=== PATIENT | male | born 1950 | race Caucasian/White ===

== ENCOUNTER 2016-10-17 10:48 | Observation (INO) | payer OTHER, MEDICARE ==
--- NOTE | ~2016-10-17 | HP ---
History And Physical [id number] [place]. [address] NAME: FABRICE BILL : 48 STATUS : ADM Alexander PAT#: [id number] AGE: 66 ADM/REG DATE : 10/17/16 MR#: [id number] REPORT SERV DATE: 10/17/16 DICTATED BY: WALTER FRANKS DATE: 10/17/16 REPORT STATUS : Draft TRANSCRIBED BY: MODL DATE: 10/17/16 DATE OF ADMISSION: 10/17/2016 CHIEF COMPLAINT: Bilateral ureteral calculi. HISTORY OF PRESENT ILLNESS: Mr. Bill is a 66-year-old male with a history of urolithiasis who has had left flank pain with nausea and vomiting for approximately 48 hours. The patient came to the emergency department here where a renal stone CT scan was done. It shows a 1 cm left mid ureteral calculus and a 6 mm right mid ureteral calculus. He states he has been urinating. His serum creatinine was 1.8. He is going to be admitted for treatment of his obstructing stones. PAST MEDICAL HISTORY: Urolithiasis and prostate cancer, which is untreated (self-treated). PAST SURGICAL HISTORY: Includes ureteroscopy. MEDICATIONS: No prescription medications. The patient takes multiple vitamins and herbs including ginseng, vitamin E, and fish oil. ALLERGIES: NONE LISTED. SOCIAL HISTORY: Denies drug, alcohol, or tobacco abuse. He is fairly active for his age. REVIEW OF SYSTEMS: Negative for any gouty arthritis or gastrointestinal diseases. PHYSICAL EXAMINATION: GENERAL: Shows a well-developed, well-nourished white male, in no acute distress. He has been sedated. He is awake and alert. ABDOMEN: Soft and nontender. GENITOURINARY: The bladder is not distended. Flanks are nontender. The penis is normal. Testes descended. Prostate exam not done. LOWER EXTREMITIES: No deformities. STUDIES: CT scan as described. Serum creatinine 1.8. White blood cell count 4000. IMPRESSION: 1. Bilateral obstructing ureteral calculi, left worse than right, left stone is 1 cm and right stone is 6 mm. 2. Acute kidney injury. PLAN: Urgent cystoscopy, bilateral retrograde pyelogram, and bilateral ureteral stenting. Once we reestablished normal renal function and hydrated adequately, we consider either outpatient ureteroscopy or lithotripsy or combination of the two. Addendum: I asked the patient about his prostate cancer. He declined any treatment from me History And Physical [address] [place] [address] NAME: FABRICE BILL : 49 STATUS : ADM Alexander PAT#: [id number] AGE: 66 ADM/REG DATE : 10/17/16 MR#: [id number] REPORT SERV DATE: 10/17/16 DICTATED BY: WALTER FRANKS DATE: 10/17/16 REPORT STATUS : Draft TRANSCRIBED BY: ANDREW DATE: 10/17/16 and wants to continue to get his care with that disease through the [facility]. PF/ANDREW Walter Franks M.D. / [id number] CC: Walter Franks M.D. UNKNOWN
--- NOTE | ~2016-10-17 | OP ---
Record Of Operation [facility] [address] [place]. [address] NAME: FABRICE BILL : 48 STATUS : ADM Alexander PAT#: [id number] AGE: 66 ADM/REG DATE : 10/17/16 MR#: [id number] REPORT SERV DATE: 10/17/16 DICTATED BY: WALTER FRANKS DATE: 10/17/16 REPORT STATUS : Draft TRANSCRIBED BY: MODL DATE: 10/17/16 DATE OF PROCEDURE: 10/17/2016 PREOPERATIVE DIAGNOSES: Bilateral ureteral calculi with obstruction and acute kidney injury. POSTOPERATIVE DIAGNOSES: Bilateral ureteral calculi with obstruction and acute kidney injury. PROCEDURE: Cystoscopy, bilateral retrograde pyelogram, bilateral ureteral stent placement. SURGEON: Walter Franks M.D. ANESTHESIA: General. BLOOD LOSS: 5 mL. FLUID REPLACEMENT: 500 mL crystalloid. DRAINS: A 6-Tajik 28 cm double-J right and left ureteral stents with the strings removed. INDICATIONS: A 66-year-old male with bilateral ureteral calculi. The left calculus is mid ureter, measuring 1 cm. The right calculus is mid ureter, measuring 6 mm. TECHNIQUE: The patient was identified, brought to the operating room, and administered general anesthetic agent by the Anesthesia Service and maintained with a mask airway. He was positioned in the dorsal lithotomy position. Penis, groin, scrotum, and perineum were prepped and draped in the usual sterile fashion. A 22-Tajik cystoscopic sheath with 30- degree lens was used for cystourethroscopy. The anterior and bulbous urethra were normal. The prostatic urethra was hypertrophied. The bladder was entered and surveyed. No stones were seen in the bladder. Surveys including 70-degree lens. No urothelial lesion. Moderate trabeculation. The left ureteral orifice was cannulated with a 5-Tajik open-ended catheter. Fluoroscopic imaging reveals a stone in the upper portion of the mid ureter on the left. Dilute contrast material was then injected via 5-Tajik open-ended catheter in retrograde fashion. It showed a normal course and caliber to the distal ureter and then comes upon the stone and proximal of that was hydronephrotic. I passed a 0.035 wire up the left ureter, past the stone into the renal pelvis. I advanced the open-ended catheter into the renal pelvis. I sampled the urine, it was clear and not purulent. I reintroduced the wire, removed the open ended catheter, positioned a 6-Tajik 28-cm double-J left ureteral stent. The proximal ends coiled in the renal pelvis, distal end in the bladder. The string and wire were removed. I cannulated the right ureteral orifice with the same 5-Tajik open-ended catheter. A right retrograde pyelogram was obtained. It showed some narrowing in the mid ureter, but the stone was not well seen. There was mild hydronephrosis on the right side. I passed a 0.035 wire up the right ureter. I removed the open-ended catheter and placed a 6-Tajik 28 cm Record Of Operation [address] [address] NAME: FABRICE BILL : 48 STATUS : ADM Alexander PAT#: [id number] AGE: 66 ADM/REG DATE : 10/17/16 MR#: [id number] REPORT SERV DATE: 10/17/16 DICTATED BY: WALTER FRANKS DATE: 10/17/16 REPORT STATUS : Draft TRANSCRIBED BY: ANDREW DATE: 10/17/16 double-J right ureteral stent. The string and wire were removed. The bladder was drained. The procedure was terminated. The patient was awakened and taken to the recovery unit in stable and satisfactory condition. PF/ANDREW Walter Franks M.D. / [id number] CC: Walter Franks M.D.
[2016-10-17 09:07] LABS: BASOPHILS 0.1 %; BASOPHILS ABSOLUTE 0.01 10/3/uL (0.0-0.16); EOSINOPHILS 0.4 %; EOSINOPHILS ABSOLUTE 0.04 10/3/uL (0.0-0.53); HEMOGLOBIN 13.8 g/dL (13.6-17.8); IMMATURE GRANULOCYTES 0.1 %; IMMATURE GRANULOCYTES ABSOLUTE 0.01 10/3/uL (0.0-0.11); LYMPHOCYTES 17.4 %; LYMPHOCYTES ABSOLUTE 1.62 10/3/uL (0.67-4.30); MEAN CORPUS HGB CONC 33.7 g/dL (32.0-36.0); MEAN CORPUSCULAR HEMOGLOB 30.1 pg (26.0-34.0); MEAN CORPUSCULAR VOLUME 89.5 fL (80-100); MEAN PLATELET VOLUME 9.9 fL (9.2-13.0); MONOCYTES 9.4 %; MONOCYTES ABSOLUTE 0.88 10/3/uL (0.21-1.20); NEUTROPHILS 72.6 %; NEUTROPHILS ABSOLUTE 6.77 10/3/uL (2.02-8.40); PLATELET COUNT 208 10/3/uL (150-400); RBC DISTRIBUTION WIDTH 13.2 % (12.0-16.0); RED CELL COUNT 4.58 10/6/uL (4.7-6.1); WHITE BLOOD CELLS 9.3 10/3/uL (4.5-10.5)
[2016-10-17 09:11] LABS: MANUAL DIFF NO %
[2016-10-17 09:24] LABS: A/G RATIO 0.9 (0.7-1.9); ALBUMIN 3.7 G/DL (3.5-5.0); ALKALINE PHOSPHATASE 85 U/L (45-117); BUN (BLOOD UREA NITROGEN) 18 MG/DL (6-23); CALCIUM, SERUM 9.3 MG/DL (8.5-10.4); CHLORIDE, SERUM 101 MMOL/L (96-112); CO2 (CARBON DIOXIDE) 26 MMOL/L (24-34); GFR AFRICAN AMERICAN 44 ML/MIN (>=60); GFR NON AFRICAN AMERICAN 38 ML/MIN (>=60); GLOBULIN 4.1 G/DL (2.5-4.1); GLUCOSE, SERUM 112 MG/DL (60-99); POTASSIUM, SERUM 4.1 MMOL/L (3.5-5.3); SGOT(AST) 18 U/L (5-40); SGPT(ALT) 19 U/L (5-65); SODIUM, SERUM 133 MMOL/L (135-148); TOTAL BILIRUBIN 1.1 MG/DL (0-1.2); TOTAL PROTEIN 7.8 G/DL (6.0-8.5)
[2016-10-17] MEDS ORDERED: CENTRUM PO (11:16)
[2016-10-17] MEDS ORDERED: PHOSPHOROUS PO (11:17)
[2016-10-17] MEDS ORDERED: [UNRECOGNIZED DRUG - OTHER] PO (11:18)
[2016-10-17] MEDS ORDERED: ENDOCET1 TA3 PO (11:20)
[2016-10-17] MEDS ORDERED: [UNRECOGNIZED DRUG - REMARK] PO (11:22)
[2016-10-18 06:34] LABS: BUN (BLOOD UREA NITROGEN) 17 MG/DL (6-23); CALCIUM, SERUM 8.5 MG/DL (8.5-10.4); CHLORIDE, SERUM 105 MMOL/L (96-112); CO2 (CARBON DIOXIDE) 30 MMOL/L (24-34); CREATININE 1.54 MG/DL (0.70-1.30); GFR AFRICAN AMERICAN 53 ML/MIN (>=60); GFR NON AFRICAN AMERICAN 46 ML/MIN (>=60); SODIUM, SERUM 139 MMOL/L (135-148)
[2016-10-18 06:35] LABS: GLUCOSE, SERUM 87 MG/DL (60-99)
[2016-10-18] MEDS ORDERED: PYR200 PO (13:24)
[2016-10-21] MEDS ORDERED: T PO (16:11)
== END 2016-10-18 15:41 | disposition home or self-care (01) ==
LOC: ER 10:48 → 7NO 14:43
PROVIDERS: Hospitalist; Urology
PROC: BT14YZZ Fluoroscopy of Kidneys, Ureters and Bladder using Other Contrast (ICD-10-PCS; 2016-10-17)
PROC: 0T788DZ Dilation of Bilateral Ureters with Intraluminal Device, Via Natural or Artificial Opening Endoscopic (ICD-10-PCS; principal; 2016-10-17 17:45)
DX: N13.2 Hydronephrosis with renal and ureteral calculous obstruction (principal); N17.9 Acute kidney failure, unspecified; Z79.891 Long term (current) use of opiate analgesic; Z79.899 Other long term (current) drug therapy
CPT/HCPCS: 74000; 74176; 74420; 80048; 80053; 83690; 85025; 93005; 96374; 96375; 96376; 99285; C1758; C2617; G0378; J1170; J2250; J2270; J2405; J2550; J2710; J3010; Q9967

== ENCOUNTER 2016-10-20 09:29 | Day surgery (SDC) | payer OTHER, MEDICARE ==
[2016-10-19 17:36] LABS: ASCORBIC ACID (UR NOT ORDER) NEG (NEG); BILIRUBIN, URINE NEGATIVE (NEG); KETONE, URINE NEGATIVE (NEG); LEUKOCYTE ESTERASE(NOT OR SMALL (NEG); WBC (NOT ORDERED) (RFLEX) 140 (0-5)
--- NOTE | ~2016-10-20 | OP ---
Record Of Operation [facility] [address] [place]. [address] NAME: FABRICE BILL : 48 STATUS : REG [facility]#: [id number] AGE: 66 ADM/REG DATE : 10/20/16 MR#: [id number] REPORT SERV DATE: 10/20/16 DICTATED BY: WALTER FRANKS DATE: 10/20/16 REPORT STATUS : Draft TRANSCRIBED BY: MODL DATE: 10/20/16 DATE OF PROCEDURE: 10/20/2016 PREOPERATIVE DIAGNOSIS: Left ureteral calculus. POSTOPERATIVE DIAGNOSIS: Left renal calculus. PROCEDURES: ESWL of the left renal calculus. ANESTHESIA: General. ESTIMATED BLOOD LOSS: None. DRAINS: None. INDICATION: Mr. Bill is a 66-year-old male, who presented with bilateral obstructing stones earlier this week. He underwent cystoscopy and bilateral stenting. He is here today for lithotripsy to the stone on the left side. FINDINGS: Stone has been pushed back up into the kidney. It measures approximately 1 cm. TECHNIQUE: The patient was identified and brought to the lithotripsy suite. He was laid on the new Dornier lithotripsy table. Administered general anesthetic agent by the Anesthesia Service and intubated. The stone on the left side was identified in the mid pole of the left kidney. The beam was focused on the stone using biplanar fluoroscopy. We then initiated shockwave therapy starting at energy level of 1.0 and advancing energy level of 4.0. A total of 2500 shocks were delivered. Intermittent fluoroscopy was used to maintain focus on stone. There appeared to be good fragmentation of the stone. After 2500 shocks the procedure was terminated. The patient was awakened and taken to the recovery unit in stable and satisfactory condition. PF/ANDREW Walter Franks M.D. / [id number] CC: Walter Franks M.D.
[~2016-10-20 09:29] MED LIST: CENTRUM PO; ENDOCET1 TA3 PO; PHOSPHOROUS PO; PYR200 PO; [UNRECOGNIZED DRUG - OTHER] PO; [UNRECOGNIZED DRUG - REMARK] PO
[2016-10-21] MEDS ORDERED: T PO (16:11)
== END 2016-10-20 14:35 | disposition home or self-care (01) ==
LOC: SDC 09:29
PROVIDERS: Urology
PROC: 0TF4XZZ Fragmentation in Left Kidney Pelvis, External Approach (ICD-10-PCS; principal; 2016-10-20 11:30)
DX: N20.0 Calculus of kidney (principal); Z85.46 Personal history of malignant neoplasm of prostate; Z98.890 Other specified postprocedural states; Z87.442 Personal history of urinary calculi; Z87.828 Personal history of other (healed) physical injury and trauma; Z87.891 Personal history of nicotine dependence; Z79.891 Long term (current) use of opiate analgesic
CPT/HCPCS: 50590; 74000; 81001; 87086; C9113; J2250; J2405; J2710; J3010

== ENCOUNTER 2016-10-25 09:37 | Day surgery (SDC) | payer OTHER ==
--- NOTE | ~2016-10-25 | OP ---
Record Of Operation [facility] [address] [place]. [address] NAME: FABRICE BILL : 48 STATUS : [facility]#: [id number] AGE: 66 ADM/REG DATE : 10/25/16 MR#: [id number] REPORT SERV DATE: 10/26/16 DICTATED BY: WALTER FRANKS DATE: 10/25/16 REPORT STATUS : Draft TRANSCRIBED BY: MODL DATE: 10/25/16 DATE OF PROCEDURE: PREOPERATIVE DIAGNOSIS: Right proximal ureteral calculus. POSTOPERATIVE DIAGNOSES: Right proximal ureteral calculus and right renal calculus. PROCEDURES: Cystoscopy, bilateral ureteral stent removal, bilateral retrograde pyelograms, right ureterorenoscopic stone extraction with in situ laser lithotripsy, and right double-J stent placement. SURGEON: Walter Franks M.D. ANESTHESIA: General. ESTIMATED BLOOD LOSS: 5 mL. FLUID REPLACEMENT: 900 mL of crystalloid. DRAINS: A 6-Afghan 26 cm double-J right ureteral stent with the strings removed. INDICATION: A 66-year-old male presented with bilateral obstructing stones approximately a week ago. He underwent cystoscopy and stenting. The left ureteral stone was pushed back up into the kidney and he underwent a lithotripsy of that late last week. TECHNIQUE: The patient was identified, brought to the operating room, administered general anesthetic agent by the Anesthesia Service and intubated. He was positioned in the dorsal lithotomy position. The lower abdomen, penis, groin, scrotum, and perineum were prepped and draped in the usual sterile fashion. A 22-Afghan cystoscopic sheath with a 30-degree lens was used for cystourethroscopy. The anterior and bulbous urethra were normal. The prostatic urethra was hypertrophied. The bladder was entered. The tip of the left ureteral stent grasped and removed. The tip of the right ureteral stent was grasped and removed. I then reinserted the cystoscope. I then performed bilateral retrograde pyelograms. There were some air bubbles on the left side, but no obstructions. On the right side, there appeared to be filling defect and stone in the proximal ureter. I passed a 0.35 wire up the left ureter. I removed the cystoscope and then reintroduced the cystoscope and placed a second wire up the left ureter. I removed the cystoscope. Over the second wire, I advanced a 12/14-Afghan ureteral access sheath into the proximal ureter. The inner core was removed. I then inserted the flexible ureteroscope up the left ureter. I advanced it into the left proximal ureter. The stone was identified. It was too large to come out in one piece. I was advancing the laser to fragment the stone and the stone was forced back up into the kidney. I went all the way up into the kidney with the flexible ureteroscope. I identified the stone, fragmented into several fragments and removed the fragments with an N-Jairo device. I then surveyed every calyx of the kidney. The patient had numerous Howie plaques. There was some other small stones, which I extracted. I cleared the kidney of all stone fragments. A bag filled with diluted contrast material, removed the ureteroscope and Record Of Operation [address] [place]. [address] NAME: FABRICE BILL : 48 STATUS : [facility] PAT#: [id number] AGE: 66 ADM/REG DATE : 10/25/16 MR#: [id number] REPORT SERV DATE: 10/26/16 DICTATED BY: WALTER FRANKS DATE: 10/25/16 REPORT STATUS : Draft TRANSCRIBED BY: MODL DATE: 10/25/16 the access sheath leaving the safety wire behind. I back loaded the cystoscope onto the wire. A 6-Afghan 26 cm double-J left ureteral stent was positioned in the upper pole of the left kidney under fluoroscopy and into the bladder under direct vision. The string and wire were removed. The bladder was drained. The stones were collected and sent for chemical analysis. The procedure was terminated. PF/MODL Walter Franks M.D. / [id number] CC: Walter Franks M.D.
[~2016-10-25 09:37] MED LIST changes: +T PO
[2016-10-30 16:25] LABS: STONE COMPOSITION TWO DNR (())
== END 2016-10-25 21:05 | disposition home or self-care (01) ==
LOC: SDC 09:37
PROVIDERS: Urology
PROC: 0TC08ZZ Extirpation of Matter from Right Kidney, Via Natural or Artificial Opening Endoscopic (ICD-10-PCS; 2016-10-25)
PROC: 0TC68ZZ Extirpation of Matter from Right Ureter, Via Natural or Artificial Opening Endoscopic (ICD-10-PCS; 2016-10-25)
PROC: 0T768DZ Dilation of Right Ureter with Intraluminal Device, Via Natural or Artificial Opening Endoscopic (ICD-10-PCS; principal; 2016-10-25 11:00)
DX: N20.2 Calculus of kidney with calculus of ureter (principal); Z85.46 Personal history of malignant neoplasm of prostate; Z87.891 Personal history of nicotine dependence; Z98.890 Other specified postprocedural states; Z79.899 Other long term (current) drug therapy
CPT/HCPCS: 74420; 82365; A9270-GY; C1758; C1769; C1894; C2617; J1170; J2405; J2710; J3010; Q9967